=== PATIENT | female | born 1935 | race Caucasian/White ===

== ENCOUNTER → 2016-07-21 | Day surgery (SDC) | payer MEDICARE, OTHER ==
[2016-06-25 10:55] VITALS: BMI 20.9
--- NOTE | 2016-07-20 11:38 | SC.ANESEVA ---
Anesthesia Eval & Plan ([facility]) - Providers Stated Procedure: left eye cataract surgery Surgeon:: Norma Johnson - Medications/Allergies Allergies: Allergies lorazepam [From Ativan] Allergy (Mild, Verified 05/12/16 14:54) Confusion per order Dr. Craven 04/02/12 zolpidem tartrate [From Ambien] Allergy (Mild, Verified 05/19/16 08:45) Confusion per order Dr. Cravne 04/02/12 amoxicillin [Amoxicillin] Allergy (Unknown, Verified 05/19/16 08:45) Rash Patient tolerated Invanz during 08/31 admission levofloxacin [From Levaquin] Allergy (Unknown, Verified 05/19/16 08:45) rash sulfamethoxazole [From Septra] Allergy (Unknown, Verified 05/19/16 08:45) Rash trimethoprim [From Septra] Allergy (Unknown, Verified 05/19/16 08:45) Rash aspirin Allergy (Verified 05/19/16 08:45) STOMACH UPSET cimetidine HCl [From Tagamet] Allergy (Verified 05/19/16 08:45) Headache enalapril [Enalapril] Allergy (Verified 05/19/16 08:45) Headache metronidazole Allergy (Verified 05/19/16 08:45) Unknown Metronidazole HCl [From Flagyl] Allergy (Verified 05/19/16 08:45) Rash TRIMETHOPRIM Allergy (Uncoded 05/12/16 14:54) Rash-Generalized Home Medications: Home Medication List Loratadine [Claritin] 10 mg PO DIR 06/25/16 [History] Ranitidine HCl 150 mg PO BID 06/25/16 [History] Current Medication List: Reviewed - Focused Physical Exam NPO since: Since after Midnight Mallampati: Class II Thyromental Distance: Greater than 3 Neck: Limited Range of Motion Dental: Normal - no significant findings Cardiovascular/Chest: Normal (RRR no mumurs or rubs.) Respiratory: Lungs clear. negative: Wheezing Any problems with anesthesia, including nausea and vomiting?: No Any relatives with a history of Malignant Hyperthermia?: No Prone to Motion Sickness: No Other: Diagnoses AGE-RELATED NUCLEAR CATARACT, LEFT EYE (07/21/16) Problem List Problem Status Onset Lower GI bleed Acute Constipation Chronic GERD (gastroesophageal reflux disease) Chronic Allergies Allergy/AdvReac Type Severity Reaction Status Date / Time lorazepam [From Ativan] Allergy Mild Confusion Verified 05/12/16 14:54 zolpidem tartrate Allergy Mild Confusion Verified 05/19/16 08:45 [From Ambien] amoxicillin [Amoxicillin] Allergy Unknown Rash Verified 05/19/16 08:45 levofloxacin [From Levaquin] Allergy Unknown rash Verified 05/19/16 08:45 sulfamethoxazole Allergy Unknown Rash Verified 05/19/16 08:45 [From Septra] trimethoprim [From Septra] Allergy Unknown Rash Verified 05/19/16 08:45 aspirin Allergy STOMACH Verified 05/19/16 08:45 UPSET cimetidine HCl [From Tagamet] Allergy Headache Verified 05/19/16 08:45 enalapril [Enalapril] Allergy Headache Verified 05/19/16 08:45 metronidazole Allergy Unknown Verified 05/19/16 08:45 Metronidazole HCl Allergy Rash Verified 05/19/16 08:45 [From Flagyl] TRIMETHOPRIM Allergy Rash-Genera Uncoded 05/12/16 14:54 lized Home Medications Medication Instructions Recorded Last Taken Type Aspirin [Adult Low Dose Aspirin EC] 81 mg PO DAILY 07/26/15 05/12/16 History Atorvastatin Calcium [Lipitor] 20 mg PO DAILY 07/26/15 05/11/16 History Calcium Carbonate/Vitamin D3 1 tab PO BID 07/26/15 05/12/16 History [Caltrate w/ Vit D Tab (600mg/400IU)] Lubiprostone [Amitiza] 24 mcg PO DAILY 07/26/15 05/12/16 History Mv-Mn/FA/Vit K/Lycop/Lut/Zeaxa 1 tab PO DAILY 07/26/15 05/12/16 History [Ocuvite Eye + Multi Tablet] Omeprazole 40 mg PO DAILY 07/26/15 05/12/16 History Azelastine HCl 205.5 mcg BID 05/11/16 05/12/16 History Azelastine HCl 6 ml OD DAILY 05/12/16 05/12/16 History Ferrous Sulfate [Slow Fe] 142 mg PO DAILY 05/12/16 05/12/16 History Pregabalin [Lyrica] 100 mg PO TID 05/12/16 05/12/16 History Loratadine [Claritin] 10 mg PO DIR 06/25/16 Unknown History Ranitidine HCl 150 mg PO BID 06/25/16 Unknown History Height and Weight Patient's height 5 ft 3 in Patient's weight 53.64 kg Weight (Calculated Kilograms) 53.640 BMI 20.9 - Anesthetic Plan Anesthesia Type: MAC ASA Class: 3 - Focused Review of Systems Cardiac History: Yes: Hx Hypertension, Hx Cardiac Disorders, Hx Abnormal Cholesterol/Hyperlipidemia HEENT: Yes: Cataracts, Other HEENT Problems Respiratory: Yes: Hx Pneumonia Gastrointestinal: Yes: Hx Gastroesophageal Reflux Disease, Hx Gastrointestinal Disorders, Hx Obstructive Bowel, Hx Diverticulosis (DIVITICULLAR DISEASE), Hx Colonoscopy Genitourinary: Yes: Hx Renal Failure (STAGE 3) Neurological/Musculoskeletal: Yes: Hx Back Pain, Hx Neurological Disorders Blood/Autoimmune: Yes: Hx Blood Transfusions, Hx Anemia No: Hx AIDS, Hx Hepatitis (type) Smoking Status: Never smoker Past Social History: Denies: Substance Use Disorder Surgical History: Yes: T&A, Bowel, Cholecystectomy, Bladder Tact (x2), Back Other Surgical History: TONSILECTOMY exploratory lap for blockage x2 BREAST BX'S X 7- BENIGN, OVARIAN CYSTECTOMY rivka,appen,tonsillectomy, 2 bladder tack ups
[~2016-07-21] MED LIST: BSS 500 ml-Vancomycin 10 mg-Phenylephrine 1 mg Irrigation IR ONE; CHONDROITIN SULFATE 0.5 ML/PFS INTRAOC ONE; DEXAMETHASONE 4 MG/ML VIAL IV PRN; DIAZEPAM 5 MG TAB PO PRN; FENTANYL 100 MCG/2 ML VIAL ONE; Hyaluronate Sodium (Provisc) 5.5 mg/0.55 ml syringe INTRAOC ONE; LABETALOL 20 MG/4 ML SYRINGE IV PRN; MIDAZOLAM 2 MG/2 ML VIAL ONE; ONDANSETRON HCL 4 MG/2 ML VIAL IV PRN; PHENYLEPHRINE 2.5% OPHTH SOLN 2 ML BOT OP EYE ONE; SCOPOLAMINE TRANSDERMAL PATCH TOP ONE; TETRACAINE 0.5% 2 ML OPHTH SOLN OP EYE ONE; TETRACAINE 0.5% 2 ML OPHTH SOLN OP EYE PRN; TETRACAINE 0.5% 4 ML OPHTH SOLN OP EYE ONE; TETRACAINE 0.5% 4 ML OPHTH SOLN OP EYE PRN; TROPICAMIDE 1% OPHTH SOLN 2 ML BOTTLE OP EYE ONE; Vancomycin 10 MG, Phenylephrine 1,000 MCG in Balanced Salt Solution 500 ML IO ONE; hydrALAZINE 20 MG/ML VIAL IV PRN
[2016-07-21 12:32] VITALS: TEMP 97.4
--- NOTE | 2016-07-21 13:14 | HIMOPRPT ---
DATE OF PROCEDURE: 07/21/16 PREOPERATIVE DIAGNOSIS: Cataract left eye. POSTOPERATIVE DIAGNOSIS: Cataract left eye. PROCEDURE: Cataract extraction by phacoemulsification of the left eye SURGEON: Norma Johnson MD. ANESTHESIA: IV Sedation/Topical. COMPLICATIONS: None. PRE-OPERATIVE EVALUATION: The patient has been examined and deemed medically stable for cataract extraction with no apparent need for inpatient observation; outpatient setting is appropriate. Patient appears to be oriented to time, place and person. PROCEDURE IN DETAIL: The correct eye confirmed by patient, doctor, staff and paperwork. The operative eye was then marked by the doctor in the preoperative area. Eye drops were instilled into the operative eye to dilate the pupil. The patient was transported to the operating room and was placed in the supine position. A time out was performed before the beginning of the procedure. The operative eye was prepped and draped in the usual sterile fashion for ophthalmic surgery, taking care to isolate the lashes from the surgical field. Topical anesthetic drops were instilled into the operative eye. A lid speculum was placed. Betadine 5% was instilled in the operative eye for antiseptic. Microscope was brought into place for use throughout the case. The eye was inspected. A paracentesis incision was created with a side port knife. The temporal limbal corneal incision was performed with a merrick blade. Viscoelastic was injected into the anterior chamber. Capsule forceps were used to create a capsulorhexis. Hydrodissection was performed with BSS. The nucleus was removed by phacoemulsification. Phaco time is noted below. The remaining cortical material was removed by I&A. The capsular bag was noted to be intact and distended with viscoelastic. The Intraocular lens was placed into the intact bag and centered without difficulty. The remaining viscoelastic was removed by I&A. Betadine 5% drops were placed to inspect wound and for antisepsis. Inspection revealed watertight wounds. The lid speculum was removed. Postoperative medications were instilled into the eye and a shield secured over the operative eye. IOL Type [id number] IOL Power 22.0 CDE 4.34 Discharge Summary: There were no complications and the patient was taken to the postoperative area in good condition. Postoperative instructions and outpatient follow up time were given.
[2016-07-21 13:27] VITALS: BP 135/72; PULSE 73
--- NOTE | 2016-07-21 14:17 | SC.ANESPOS ---
Post-Anesthesia Note LOC: Fully Awake Post-Anesthesia Assessment: Awake, Returned to Baseline, Hemodynamically Stable , Pain Control Adequate Phase I & II Recovery Complete: Yes Apparent Anesthesia Complication: No : N - Vital Signs Blood Pressure: 135/72 Pulse: 73 Resp Rate: 18 O2 Sat: 96 Temp: 97.4 F
== END ==
LOC: CPSC 11:11
PROVIDERS: ATTEND Ophthalmology
PROC: 08RK3JZ Replacement of Left Lens with Synthetic Substitute, Percutaneous Approach (ICD-10-PCS; principal; 2016-07-21 14:00)
DX: H25.12 Age-related nuclear cataract, left eye (principal); I12.9 Hypertensive chronic kidney disease with stage 1 through stage 4 chronic kidney disease, or unspecified chronic kidney disease; N18.3 Chronic kidney disease, stage 3 (moderate); E78.5 Hyperlipidemia, unspecified; K21.9 Gastro-esophageal reflux disease without esophagitis; M19.90 Unspecified osteoarthritis, unspecified site; Z79.899 Other long term (current) drug therapy
CPT/HCPCS: 66984; A9270; J2250; J3010; V2632; J3490